=== PATIENT | male | born 1980 ===

== ENCOUNTER 2017-09-29 07:33 | Emergency (ER) | payer SELFPAY ==
[2017-09-29 07:39] VITALS: BP 133/80
--- NOTE | 2017-09-29 09:45 | Emergency Department Report ---
Chief Complaint: Dental/Oral Stated Complaint: TOOTHACHE Time Seen by Provider: 09/29/17 09:40 - HPI History of Present Illness: Patient is a 37-year-old black male who is complaining of 2 days of dental pain. Patient states that he has pain in the left upper molars. Patient denies any fevers difficulty swallowing at this time. - ROS Review of Systems: All systems reviewed are negative - Exam Vital Signs: Vital Signs 09/29/17 07:36 Temperature 98.0 F Pulse Rate 76 Blood Pressure 133/80 O2 Sat by Pulse 97 Oximetry Physical Exam: Patient has significant dental caries to tooth 1516 there is no swelling to ago spelled fluctuance there is no facial cellulitis MSE screening note: Focused history and physical exam performed. Due to findings the following was ordered: ED Medical Decision Making - Medical Decision Making Patient was deemed nonmedical emergency. Patient opted to not pay the hospital co-pay. Patient referred to [facility] for dental care. ED Disposition for MSE Clinical Impression: Pain, dental Disposition: MED SCREENING EXAM-LEFT Is pt being admited?: No Does the pt Need Aspirin: No Condition: Stable Referrals: PRIMARY CARE, [Primary Care Provider] - 3-5 Days
== END 2017-09-29 09:43 | disposition left against medical advice (07) ==
LOC: ED 07:33
DX: K08.89 Other specified disorders of teeth and supporting structures (principal)
CPT/HCPCS: 99282

== ENCOUNTER 2017-11-30 01:51 | Emergency (ER) | payer SELFPAY ==
[2017-11-30 01:56] VITALS: BP 118/89
[2017-11-30] MEDS ORDERED: BOOSTRIX IM ONE (04:05)
--- NOTE | 2017-11-30 04:08 | Emergency Department Report ---
- General Chief complaint: Puncture Wound Stated complaint: LEFT LEG LACERATION Source: patient Mode of arrival: Ambulatory Limitations: No Limitations - History of Present Illness Initial comments: 37-year-old -[place] male reports that a metal from a hotel mattress punctured his left distal thigh. There is no active bleeding upon arrival to the emergency room. Patient is not sure when his last tetanus shot. Patient reports that he cleaned the wound with peroxide. Denies any medical history reports that surgical history is her right arm. A rods placed to the left jaw. -: hour(s) Tetanus Up to Date: unsure Location: L[facility] Severity: mild Severity scale (0 -10): 2 Quality: burning Consistency: intermittent Improves with: none Worsens with: none Associated symptoms: denies other symptoms Treatments Prior to Arrival: other (clean wound with peroxide prior to arrival) - Related Data Allergies Allergy/AdvReac Type Severity Reaction Status Date / Time Penicillins Allergy Hives Verified 09/29/17 07:39 Abscess Boil HPI - HPI Chief Complaint: Puncture Wound Stated Complaint: LEFT LEG LACERATION Allergies/Adverse Reactions: Allergies Allergy/AdvReac Type Severity Reaction Status Date / Time Penicillins Allergy Hives Verified 09/29/17 07:39 ED Review of Systems ROS: Stated complaint: LEFT LEG LACERATION Other details as noted in HPI Skin: other (scratch to the left lower thigh) ED Past Medical Hx - Past Medical History Previous Medical History?: No - Surgical History Past Surgical History?: Yes Additional Surgical History: right arm pins and hitesh. plate to left jaw - Social History Smoking Status: Current Every Day Smoker Substance Use Type: None ED Physical Exam - General Limitations: No Limitations General appearance: alert, in no apparent distress - Eye Eye exam: Present: EOMI - Neck Neck exam: Present: full ROM - Neurological Exam Neurological exam: Present: alert, oriented X3 - Psychiatric Psychiatric exam: Present: normal affect, normal mood - Skin Skin exam: Present: abrasion (left laterl distal thigh, no active bleeding now tenderness to palpate no puncture wound appreciated) ED Course Vital Signs 11/30/17 01:49 Temperature 98.4 F Pulse Rate 82 Respiratory 18 Rate Blood Pressure 118/89 O2 Sat by Pulse 98 Oximetry ED Medical Decision Making - Medical Decision Making Patient has been been evaluated by this provider fast track. Discussed the patient was given the tetanus injection. Keep area clean and dry. Follow-up with her provider if any signs of infection such as purulent discharge redness swelling. Critical care attestation.: If time is entered above; I have spent that time in minutes in the direct care of this critically ill patient, excluding procedure time. ED Disposition Clinical Impression: Abrasion of thigh without infection Disposition: - TO HOME OR SELFCARE Is pt being admited?: No Does the pt Need Aspirin: No Condition: Stable Instructions: Abrasion (ED) Additional Instructions: Keep abrasion clean and dry. Return to the emergency room or healthcare provider is any signs of infection such as swelling purulent discharge redness or fever. Referrals: PRIMARY CARE, [Primary Care Provider] - 3-5 Days [facility] [Provider Group] - 3-5 Days Forms: Work/School Release Form(ED)
[2017-11-30] MEDS ORDERED: TRIPLE ANTIBIOTIC TP ONE ×2 (04:14→04:17)
== END 2017-11-30 04:20 | disposition home or self-care (01) ==
LOC: ED 01:51
DX: S70.312A Abrasion, left thigh, initial encounter (principal); F17.200 Nicotine dependence, unspecified, uncomplicated; Z88.0 Allergy status to penicillin; W26.8XXA Contact with other sharp object(s), not elsewhere classified, initial encounter; Y93.89 Activity, other specified; Y99.8 Other external cause status; Y92.59 Other trade areas as the place of occurrence of the external cause
CPT/HCPCS: 90471; 90715; 99282; A6250